=== PATIENT | female | born 1970 | race Caucasian/White ===

== ENCOUNTER → 2018-03-21 | Outpatient (CLI) | payer BC ==
--- NOTE | 2018-03-21 09:04 | MM ---
Reason for exam: screening (asymptomatic). Baseline mammogram. History: Took hormonal contraceptives beginning at age 18. Physical Findings: Nurse did not find any significant physical abnormalities on exam. MG 3D Screening Mammo W/Cad Bilateral CC and MLO view(s) were taken. The breast tissue is heterogeneously dense. This may lower the sensitivity of mammography. There is no discrete abnormality. These results were verbally communicated with the patient and result sheet given to the patient on 03/21/18. ASSESSMENT: Negative, BI-RAD 1 RECOMMENDATION: Routine screening mammogram of both breasts in 1 year.
--- NOTE | 2018-03-21 09:09 | US ---
EXAMINATION TYPE: US thyroid st tissue head/neck DATE OF EXAM: 03/21/2018 COMPARISON: NONE Here CLINICAL HISTORY: E03.9 Hypothyroidism. 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 GLAND SIZE: Right Lobe: 3.1 x 1.6 x 0.9 cm Overall Parenchyma: heterogenous Left Lobe: 3.9 x 1.3 x 1.0 cm Overall Parenchyma: heterogeneous Isthmus Thickness: 0.2 cm NODULES RIGHT: # of nodules measured on right: 0 LEFT: # of nodules measured on left: 0 ISTHMUS: # of nodules measured in the isthmus: 0 Bilateral neck scanned, no evidence of lymphadenopathy. Small heterogeneous thyroid is present without discrete nodules. IMPRESSION: As above.
== END | disposition home or self-care (01) ==
LOC: RADMAMWWP 07:32
PROVIDERS: ATTEND Internal Medicine
DX: Z12.31 Encounter for screening mammogram for malignant neoplasm of breast (principal); E03.9 Hypothyroidism, unspecified; R93.8 Abnormal findings on diagnostic imaging of other specified body structures
CPT/HCPCS: 76536; 77063; 77067

== ENCOUNTER → 2020-04-05 | Outpatient (CLI) | payer BC ==
--- NOTE | 2020-04-05 12:51 | US ---
EXAMINATION TYPE: US thyroid st tissue head/neck DATE OF EXAM: 04/05/2020 COMPARISON: 03/21/2018 CLINICAL HISTORY: R13.10 Dysphasia. GLAND SIZE: Right Lobe: 3.6 x 1.6 x 1.3 cm Overall Parenchyma: heterogenous Left Lobe: 4.2 x 1.2 x 1.1 cm Overall Parenchyma: heterogeneous Isthmus Thickness: 0.3 cm NODULES RIGHT: # of nodules measured on right: 1 1. 0.5 x 1.3 x 1.4 cm echogenic solid nodule at the lateral pole with poorly defined margins. This nodule is wider than tall and shows no intranodular vascularity. *No prior LEFT: # of nodules measured on left: 0 ISTHMUS: # of nodules measured in the isthmus: 0 Bilateral neck scanned, no evidence of lymphadenopathy. IMPRESSION: Solitary new hyperechoic right thyroid nodule measuring 1.4 cm. The appearance of this no dule is typically benign however precautionary follow-up exam is recommended in 12 months to ensure s tability.
== END | disposition home or self-care (01) ==
LOC: RADUSWWP 11:34
PROVIDERS: ATTEND Internal Medicine
DX: E04.1 Nontoxic single thyroid nodule (principal)
CPT/HCPCS: 76536

== ENCOUNTER → 2020-04-10 | Outpatient (CLI) | payer BC | END | disposition home or self-care (01) | LOC: LABWHC1 10:56 | PROVIDERS: ATTEND Internal Medicine Gastroenterology | DX: Z11.59 Encounter for screening for other viral diseases (principal) ==

== ENCOUNTER 2020-04-12 12:25 | Day surgery (SDC) | payer BC ==
[2020-04-10 12:18] VITALS: BMI 35.5
[2020-04-12 13:20] VITALS: TEMP 99.1
[2020-04-12] MEDS ORDERED: LIDOCAINE 1% (10MG/ML) FOR IV START INTRADERMA ONE (13:20)
[2020-04-12] MEDS ORDERED: LACTATED RINGERS 1,000 ML IV ONE (13:21)
[2020-04-12] MEDS ORDERED: LIDOCAINE 1% INJ 10MG/ML (20 ML MDV) ONE (14:07)
[2020-04-12] MEDS ORDERED: PROPOFOL 10 MG/ML 50 ML VIAL IV ONE (14:07)
--- NOTE | 2020-04-12 14:19 | P.PCN ---
Date of Procedure: 04/12/20 Procedure(s) Performed: BRIEF HISTORY: Patient is a 50-year-old, pleasant, white male, scheduled for an upper endoscopy as a part of evaluation for dysphagia to solids for the last 4 weeks' duration. She denies any heartburn. Reports no odynophagia.. She tried Prilosec 40 mg daily for a month with no help. PROCEDURE PERFORMED: Esophagogastroduodenoscopy with biopsy. PREOPERATIVE DIAGNOSIS: Intermittent dysphagia to solids of 4 weeks' duration. IV sedation per anesthesia. PROCEDURE: After informed consent was obtained, the patient was brought into the endoscopy unit. IV sedation was administered by Anesthesia under continuous monitoring. Initially the Olympus GIF-140 video endoscope was inserted into the mouth. Esophagus intubated without any difficulty. It was gradually advanced into the stomach and duodenum and carefully examined. The bulb and the second part of the duodenum appeared normal. The scope at this time was withdrawn to the stomach, adequately insufflated with air, and upon careful examination, mucosa of the antrum, body, cardia and the fundus appeared normal. The scope was then withdrawn into the esophagus. Small sliding I'll hernia noted. There was a distal esophageal Schatzki's ring identified which was dilated using T 18-20 mm TTS balloon in a sequential fashion for 60 seconds. he GE junction was located at 39 cm from the incisors. The esophagus appeared normal. There were no erosions or ulcerations seen , multiple biopsies were done from the mid and dist al esophagus to rule out eosinophilic esophagitis and the patient tolerated the procedure well. IMPRESSION: 1. Distal esophageal Schatzki's ring status post balloon dilation using 18-20 mm TTS balloon as above. 2. Mall sliding type hiatal hernia. RECOMMENDATIONS: The findings of this examination were discussed with the patient as well as a family. She was advised to follow with the biopsy results. She'll be seen in office in 2 weeks..
[2020-04-12 14:36] VITALS: RESP 18
[2020-04-12 14:40] VITALS: BP 119/80; PULSE 75
== END 2020-04-12 14:56 | disposition home or self-care (01) ==
LOC: ORWHC2ENDO 12:25
PROVIDERS: ATTEND Internal Medicine Gastroenterology
DX: K22.2 Esophageal obstruction (principal); K44.9 Diaphragmatic hernia without obstruction or gangrene; K22.8 Other specified diseases of esophagus; I10 Essential (primary) hypertension; E06.3 Autoimmune thyroiditis; F41.9 Anxiety disorder, unspecified; K21.9 Gastro-esophageal reflux disease without esophagitis; E66.01 Morbid (severe) obesity due to excess calories; Z68.35 Body mass index [BMI] 35.0-35.9, adult; Z79.899 Other long term (current) drug therapy; Z79.890 Hormone replacement therapy; Z87.898 Personal history of other specified conditions
CPT/HCPCS: 88305; 43239; 43249; J2001; J2704; C1726

== ENCOUNTER → 2021-04-22 | Outpatient (CLI) | payer BC ==
[2021-04-22 20:42] LABS: Anti-DNA, DS unit <1.0 IU/mL; Anti-Smith Ab Interp NEGATIVE (NEGATIVE); DNA Double-Stranded NEGATIVE (NEGATIVE)
== END | disposition home or self-care (01) ==
LOC: LABWHC1 12:44
PROVIDERS: ATTEND Family Medicine
DX: R76.8 Other specified abnormal immunological findings in serum (principal)
CPT/HCPCS: 36415; 86225; 86235

== ENCOUNTER → 2021-06-02 | Outpatient (CLI) | payer BC ==
--- NOTE | 2021-06-03 07:47 | US ---
EXAMINATION TYPE: US pelvis complete transvag DATE OF EXAM: 06/02/2021 COMPARISON: NONE CLINICAL HISTORY: N92.0 EXCESSIVE AND FREQUENT MENSTRATION. Heavy menses TECHNIQUE: Transvaginal (TV) and Transabdominal (TA) . EXAM MEASUREMENTS: Uterus: 9.2 x 5.5 x 5.3 cm Endometrial Stripe: .8 cm 1. Uterus: Anteverted there is a 1.0 x 0.9 x 1.0 cm hypoechoic intramural mass within the anterior uterus, likely a leiomyoma. 2. Endometrium: wnl 3. Right Ovary: Obscured by overlying bowel gas 4. Left Ovary: Obscured by overlying bowel gas 5. Bilateral Adnexa: wnl 6. Posterior cul-de-sac: wnl IMPRESSION: Likely anterior intramural leiomyoma measuring up to 1.0 cm. Nonvisualization of both ovaries.
== END | disposition home or self-care (01) ==
LOC: RADUSWWP 16:11
PROVIDERS: ATTEND Family Medicine
DX: N92.0 Excessive and frequent menstruation with regular cycle (principal)
CPT/HCPCS: 76830; 76856

== ENCOUNTER → 2021-06-09 | Day surgery (SDC) | payer BC ==
[2021-06-05 12:32] VITALS: BMI 33.0
[2021-06-09 10:50] VITALS: RESP 16; TEMP 97.7
[2021-06-09 10:53] VITALS: BP 160/96
== END ==
LOC: ORWHC2ENDO 10:28
PROVIDERS: ATTEND Internal Medicine Gastroenterology
DX: R13.10 Dysphagia, unspecified (principal); Z53.9 Procedure and treatment not carried out, unspecified reason
CPT/HCPCS: 91010

== ENCOUNTER 2021-06-27 11:16 | Day surgery (SDC) | payer BC ==
[2021-06-25 12:24] VITALS: BMI 31.7
[~2021-06-27 11:16] MED LIST: LACTATED RINGERS 1,000 ML IV SCH; LIDOCAINE 1% (10MG/ML) FOR IV START INTRADERMA PRN
[2021-06-27 12:28] VITALS: TEMP 98
[2021-06-27] MEDS ORDERED: LACTATED RINGERS 1,000 ML IV ONE (12:28)
[2021-06-27] MEDS ORDERED: MIDAZOLAM 2 MG/2 ML VIAL ONE (13:52)
[2021-06-27] MEDS ORDERED: LIDOCAINE 1% INJ 10MG/ML (20 ML MDV) ONE (13:52)
[2021-06-27] MEDS ORDERED: PROPOFOL 10 MG/ML 20 ML VIAL IV ONE (13:52)
--- NOTE | 2021-06-27 14:42 | P.PCN ---
Date of Procedure: 06/27/21 Procedure(s) Performed: BRIEF HISTORY: Patient is a 51-year-old, pleasant, white female scheduled for an upper endoscopy with possible dilation and esophageal manometry as a part of evaluation of progressive dysphagia to solids and liquids and weight loss for the last 3-4 months duration.. She had an upper endoscopy by Dr. Garcia 3 months ago with empirical dilation done and she did not have any relief in his symptoms.. Biopsies were normal. Trial of omeprazole 40 mg twice daily no help. She was scheduled for esophageal manometry as an outpatient but she could not tolerate the catheter and hence the procedure was terminated. She is hence scheduled for an upper endoscopy with esophageal manometry catheter placement and esophageal manometry today after recovery.. PROCEDURE PERFORMED: Esophagogastroduodenoscopy with balloon dilation and placement of esophageal manometry catheter. PREOPERATIVE DIAGNOSIS: Dysphagia to solids and liquids for 6 weeks duration associated weight loss of 10 pounds.. IV sedation per anesthesia. PROCEDURE: After informed consent was obtained, the patient was brought into the endoscopy unit. IV sedation was administered by Anesthesia under continuous monitoring. Initially the Olympus GIF-140 video endoscope was inserted into the mouth. Esophagus intubated without any difficulty. It was gradually advanced into the stomach and duodenum and carefully examined. The bulb and the second part of the duodenum appeared normal. The scope at this time was withdrawn to the stomach, adequately insufflated with air, and upon careful examination, mucosa of the antrum, body, cardia and the fundus appeared normal. The scope was then withdrawn into the esophagus. The GE junction was located at 39 cm from the incisors. There was a widely patent distal esophageal Schatzki's ring that was dilated using 18-20 mm TTS balloon in a sequential fashion for 90 seconds. The esophagus appeared normal. There were no erosions or ulcerations seen. At this time the esophageal manometry catheter was passed from external nostril was gently advanced into the esophagus and into the GE junction. The patient tolerated the procedure well. IMPRESSION: 1. Distal esophageal Schatzki's ring status post balloon dilation using 18-20 mm TTS balloon as described above. 2. Placement of esophageal manometry catheter as described above. RECOMMENDATIONS: The findings of this examination were discussed with the patient as well as her family. She'll be seen in office in 2-3 weeks.
[2021-06-27 14:58] VITALS: BP 141/90; PULSE 59; RESP 16
--- NOTE | 2021-07-04 08:18 | PCN ---
PROCEDURE NOTE DATE OF PROCEDURE: July 04, 2021 HISTORY: Patient is a 51-year-old white female scheduled for an upper endoscopy as a part of evaluation of progressive dysphagia to solids and liquids for the last several months duration associated with weight loss of 20 pounds. She had an upper endoscopy done by Dr. Garcia about 3 months ago and was noted to have distal esophageal Schatzki's ring that was dilated using 18-20 mm balloon. She continues to have persistent symptoms and she was scheduled for esophageal manometry. However, she was not able to tolerate the procedure and hence it was canceled and today she is scheduled for an upper endoscopy with placement of esophageal manometry probe and proceed with esophageal manometry. PROCEDURE PERFORMED: High-resolution impedance esophageal manometry. PREOPERATIVE DIAGNOSIS: Dysphagia to solids and liquids of 2 months duration associated with weight loss. DESCRIPTION OF PROCEDURE: After informed consent was obtained from the patient, upper endoscopy was performed under sedation. The esophageal manometry catheter was passed from the external nostril was gently advanced and position at the lower esophageal sphincter. The patient was recovered for 45 minutes following which the manometry procedure was performed by Endoscopy nurse Juliana. Study was interpreted using [place] classification. The following are the study results: 1. Lower esophageal sphincter data: A) mean IRP 12 mmHg. 2. Lower esophageal body peristaltic contractions 100%: Mean DCI is 4836 mmHg. 3. No evidence of simultaneous spontaneous retrograde contraction. 4. Bolus transit with liquids 100%, solids 100%. INTERPRETATION: Above esophageal manometry study shows normal esophageal peristalsis with no evidence of esophageal dysmotility. MMODL / IJN: [id number] /
== END 2021-06-27 15:11 | disposition home or self-care (01) ==
LOC: ORWHC2ENDO 11:16
PROVIDERS: ATTEND Internal Medicine Gastroenterology
DX: K22.2 Esophageal obstruction (principal); I10 Essential (primary) hypertension; E07.9 Disorder of thyroid, unspecified; K21.9 Gastro-esophageal reflux disease without esophagitis; Z79.890 Hormone replacement therapy
CPT/HCPCS: 81025; 91010; 43249; J2250; J2001; J2704; C1726

== ENCOUNTER → 2023-05-27 | Outpatient (CLI) | payer BC ==
--- NOTE | 2023-05-28 21:47 | MM ---
Reason for Exam: Screening (asymptomatic). Last mammogram was performed 5 year(s) and 2 month(s) ago. Patient History: Menarche at age 15. First Full-Term at age 26. Perimenopausal. Hormonal Contraceptives, from age 18 until age 29. Last menstrual period: 04/29/2023 Risk Values: Sol 5 year model risk: 0.9%. NCI Lifetime model risk: 7.9%. Prior Study Comparison: 03/21/2018 Bilateral Screening Mammogram, [facility]. Tissue Density: There are scattered fibroglandular densities. Findings: Analyzed By CAD. There is no suspicious group of microcalcifications or new suspicious mass in either breast. Overall Assessment: Negative, BI-RAD 1 Management: Screening Mammogram of both breasts in 1 year. . Patient should continue monthly self-breast exams. A clinical breast exam by your physician is recommended on an annual basis. This exam should not preclude additional follow-up of suspicious palpable abnormalities. Note on Sol scores and lifetime risk: 1. A Sol score greater than 3% is considered moderate risk. If this is the case, consider specialist referral to assess eligibility for a risk reducing agent. 2. If overall lifetime risk for the development of breast cancer is 20% or higher, the patient may qualify for future screening with alternating mammogram and breast MRI. Electronically signed and approved by: Bonnie Steve M.D. Radiologist
== END | disposition home or self-care (01) ==
LOC: RADMAMWWP 16:39
PROVIDERS: ATTEND Family Medicine
DX: Z12.31 Encounter for screening mammogram for malignant neoplasm of breast (principal)
CPT/HCPCS: 77063; 77067